=== PATIENT | female | born 1955 | race African-American/Black ===

== ENCOUNTER 2019-09-25 13:54 | Emergency (ER) | payer MEDICARE, OTHER ==
[~2019-09-25] VITALS: Ht 157.5 cm; Wt 72.7 kg
[2019-09-25] MEDS ORDERED: ATOR20TA86 PO (14:12)
[2019-09-25] MEDS ORDERED: NAPR-1025 PO (14:12)
[2019-09-25] MEDS ORDERED: LEVO112T4 PO (14:12)
[2019-09-25] MEDS ORDERED: GABA-531 PO (14:12)
[2019-09-25] MEDS ORDERED: HYDR-4455 PO (14:12)
[2019-09-25] MEDS ORDERED: CYCL10 PO (14:12)
[2019-09-25] MEDS ORDERED: METF-960 PO (14:12)
[2019-09-25 14:24] LABS: GLUCOSE,POINT OF CARE 97 MG/DL (70-110)
[2019-09-25 16:28] VITALS: BP 128/86
== END 2019-09-25 17:38 | disposition home or self-care (01) ==
LOC: EMS 14:00
DX: S86.811A Strain of other muscle(s) and tendon(s) at lower leg level, right leg, initial encounter (principal); E11.9 Type 2 diabetes mellitus without complications; E78.00 Pure hypercholesterolemia, unspecified; Z79.899 Other long term (current) drug therapy; X58.XXXA Exposure to other specified factors, initial encounter; Y93.89 Activity, other specified; Y92.89 Other specified places as the place of occurrence of the external cause; Y99.8 Other external cause status
CPT/HCPCS: 93971